=== PATIENT | female | born 1955 | race Caucasian/White ===

== ENCOUNTER 2018-02-26 22:30 | Emergency (ER) | payer MEDICARE ==
[~2018-02-26] VITALS: Ht 162.6 cm; Wt 57.2 kg
[2018-02-26] MEDS ORDERED: ONDANSETRON HCL 4 MG/2 ML VIAL IV ONE (23:45)
[2018-02-26 23:56] LABS: Basophils # (auto) 0.1 uL; Basophils % (auto) 1.4 % (0.0-2.0); Eosinophils # (auto) 0.1 uL; Eosinophils % (auto) 1.5 % (0.0-7.0); Hematocrit 38.9 % (36.0-46.0); Hemoglobin 13.3 g/dL (12.2-16.2); Lymphocytes # (auto) 2.1 uL; Lymphocytes % (auto) 29.9 % (10.0-50.0); Mean Corpuscular Hgb Conc. 34.2 g/dL (32.0-36.0); Mean Corpuscular Volume 90.5 fL (80.0-100.0); Monocytes # (auto) 0.5 uL; Monocytes % (auto) 6.6 % (0.0-12.0); Neutrophils # (auto) 4.2 uL; Neutrophils % (auto) 60.6 % (37.0-80.0); Nucleated Red Blood Cells % 0.1 %; Red Cell Distribution Width 16.3 % (11.8-14.3)
[2018-02-27 00:05] LABS: Alanine Aminotransferase 27 U/L (13-56); Albumin 4.5 g/dL (3.4-5.0); Anion Gap 18 (5-15); Aspartate Aminotransferase 40 U/L (15-37); BUN/Creatinine Ratio 20.7; Blood Urea Nitrogen 24 mg/dL (7-18); Calcium 8.5 mg/dL (8.5-10.1); Carbon Dioxide 17 mmol/L (21-32); Chloride 111 mmol/L (98-107); GFR African American 61 mL/min; GFR Non-African American 51 mL/min; Glucose 159 mg/dL (74-106); Magnesium 2.3 mg/dL (1.6-2.6); Potassium 4.1 mmol/L (3.5-5.1); Sodium 146 mmol/L (136-145)
[2018-02-27 00:11] LABS: Alkaline Phosphatase 179 U/L (45-117); Bilirubin, Total 0.7 mg/dL (0.2-1.0); Total Protein 9.5 g/dL (6.4-8.2)
[2018-02-27 00:14] LABS: Platelet Count (auto) 136 10^3/uL (140-450)
[2018-02-27] MEDS ORDERED: fentaNYL CITRATE 100 MCG/2 ML VL IV ONE (01:15)
[2018-02-27 01:25] LABS: Urine Bacteria NONE SEEN /hpf (None Seen); Urine Blood Negative /uL (Negative); Urine Specific Gravity 1.025 (1.001-1.035); Urine WBC 4 /hpf (0 - 5)
[2018-02-27] MEDS ORDERED: ONDANSETRON HCL 4 MG/2 ML VIAL ONE (01:28)
[2018-02-27] MEDS ORDERED: ONDANSETRON HCL 4 MG/2 ML VIAL IV ONE (01:45)
[2018-02-27 02:58] VITALS: BP 154/87
== END 2018-02-27 03:04 | disposition short-term general hospital (02) ==
LOC: ER 22:32
DX: S06.5X9A Traumatic subdural hemorrhage with loss of consciousness of unspecified duration, initial encounter (principal); S05.12XA Contusion of eyeball and orbital tissues, left eye, initial encounter; S05.11XA Contusion of eyeball and orbital tissues, right eye, initial encounter; R60.9 Edema, unspecified; E11.9 Type 2 diabetes mellitus without complications; Z88.2 Allergy status to sulfonamides; W01.198A Fall on same level from slipping, tripping and stumbling with subsequent striking against other object, initial encounter; Y93.89 Activity, other specified; Y99.8 Other external cause status; Y92.89 Other specified places as the place of occurrence of the external cause
CPT/HCPCS: 36415; 70450; 70480; 70486; 72125; 80053; 81001; 83735; 84484; 85025; 93005; 96374; 96375; 96376; 99285; J2405; J3010

== ENCOUNTER 2024-08-22 16:39 | Emergency (ER) | payer MEDICARE, OTHER ==
[~2024-08-22] VITALS: Ht 154.9 cm; Wt 63.0 kg
[2024-08-22 17:26] VITALS: BP 158/62; PULSE 89; RESP 16; TEMP 98; O2SAT 99
--- NOTE | 2024-08-22 17:30 | DVH ---
CLINICAL INDICATION: FALL TECHNIQUE: XY L KNEE 3V XRAY Comparison: None FINDINGS/IMPRESSION: : Suggestion Of a linear lucency in the medial tibial plateau which could reflect fracture although bon y demineralization limits evaluation consider evaluation with CT if clinically indicated. Bony demineralization. Suprapatellar knee joint effusion. Calcified atherosclerosis
--- NOTE | 2024-08-22 18:01 | ED.PDOC ---
Musculoskeletal HPI Comments A 68-YEAR-OLD FEMALE WAS BROUGHT TO ER BY EMS FOR LEFT KNEE PAIN POST FALL. PT STATES SHE WAS WALKING AND A BIG DOG KNOCKED OVER BEHIND HER. SHE FELL FORWARD AND LANDED HER LEFT KNEE ON THE GROUND. AFTER FALL, PT C/O LEFT KNEE PAIN AND SWELLING. WALKING AND STANDING INCREASES LEFT KNEE PAIN. PT DENIES HEAD INJURY, LOC, NECK PAIN, BACK PAIN AND OTHER BODY INJURY. NO OTHER SYMPTOMS REPORTED AT THIS TIME OF CARE. Chief Complaint: Fall Injury Time Seen by MD: 16:53 Primary Care Provider: LEONARDAO Reviewed Notes: Nurses Notes, Medications, Allergies Allergies: Coded Allergies: Sulfa Antibiotics (Verified Allergy, Unknown, 02/26/18) Information Source: Patient, Emergency Med Personnel Mode of Arrival: EMS Location: Left Extremity Location: Knee Timing: Hours Prehospital treatment: None Severity: Moderate Able to Move Extremity: No Bear Weight: Limited Pain: Moderate Hand Dominance: Right Mechanism: Other (FALL ) Circumstances: Fall Onset of Symptoms: After Trauma Symptoms: Swelling, Pain DVT Risk Factors: NONE Last Tetanus: UTD Associated signs and symptoms: Knee pain Past Medical History PAST MEDICAL HISTORY: DM Surgical History: Denies all surgeries OPERATIONS PROCESSOR History: No Pertinent OPERATIONS PROCESSOR History Family History Family History: Unknown Social History Smoker: Non-Smoker Alcohol: Heavy Drugs: Denies Drug Use Lives In: Home Constitutional: denies: chills, diaphoresis, fatigue, fever, malaise, sweats, weakness, others EENTM: denies: blurred vision, double vision, ear bleeding, ear discharge, ear drainage, ear pain, ear ringing, eye pain, eye redness, hearing loss, mouth pain, mouth swelling, nasal discharge, nose bleeding, nose congestion, nose pain, photophobia, tearing, throat pain, throat swelling, voice changes, others Respiratory: denies: cough, hemoptysis, orthopnea, SOB at rest, shortness of breath, SOB with excertion, stridor, wheezing, others Cardiovascular: denies: chest pain, dizzy spells, diaphoresis, Dyspnea on exertion, edema, irregular heart beat, left arm pain, lightheadedness, palpitations, PND, syncope, others Gastrointestinal: denies: abdomen distended, abdominal pain, blood streaked bowels, constipated, diarrhea, dysphagia, difficulty swallowing, hematemesis, m shirley, nausea, poor appetite, poor fluid intake, rectal bleeding, rectal pain, vomiting, others Genitourinary: denies: abnormal vagina bleeding, burning, dyspareunia, dysuria, flank pain, frequency, hematuria, incontinence, pain, , vagina discharge, urgency, others Neurological: denies: dizziness, fainting, headache, left sided numbness, left sided weakness, numbness, paresthesia, pre-existing deficit, right sided numbness, right sided weakness, seizure, speech problems, tingling, tremors, weakness, others Musculoskeletal: reports: joint pain, joint swelling Integumetry: denies: bruises, change in color, change in hair/nails, dryness, laceration, lesions, lumps, rash, wounds, others Allergic/Immunocompromised: denies: Difficulty Healing, Frequent Infections, Hives, Itching, others Hematologic/Lymphatic: denies: anemia, blood clots, easy bleeding, easy bruising, swollen glands, others Endocrine: denies: excessive hunger, excessive sweating, excessive thirst, excessive urination, flushing, intolerance to cold, intolerance to heat, unexplained weight gain, unexplained weight loss, others Psychiatric: reports: anxiety All Other Systems: Reviewed and Negative Physical Exam General Appearance: Mild Distress, Normal, Other (ANXIOUS ) HEENT: Normal ENT Inspection, PERRL/EOMI, Pharynx Normal, TMs Normal Neck: Full Range of Motion, Non-Tender, Normal, Normal Inspection Respiratory: Chest Non-Tender, Lungs Clear, No Accessory Muscle Use, No Respiratory Distress, Normal Breath Sounds Cardiovascular: No Edema, No JVD, No Murmur, No Gallop, Normal Peripheral Pulses, Regular Rate/Rhythm Breast Exam: Deferred Gastrointestinal: No Organomegaly, Non Tender, No Pulsatile Mass, Normal Bowel Sounds, Soft Genitalia: Deferred Pelvic: Deferred Rectal: Deferred Extremities: Decreased range of motion, No calf tenderness, Normal capillary refill, No pedal edema, Swelling (BONY TENDERNESS AND SWELLING ON LEFT KNEE, NO DEFORMITY. ), Tender (AND SWELLING ON LEFT KNEE, NO OPEN WOUND SND DEFORMITY. ) Musculoskeletal : Apperance: Normal Neurologic: Alert, trust administrative assistant II-XII nml as Tested, No Motor Deficits, Normal Affect, Normal Mood, No Sensory Deficits Cerebellar Function: Normal Reflexes: Normal Skin: Bruises (MILD CONTUSION ON RIGHT EYEBROW, NO BONY TENDERNESS AND DEFORMITY. ), Dry, Normal Color, Warm Peripheral Pulses: 2+ carotid (R), 2+ carotid (L), 2+ dorsalis pedis (R), 2+ dorsalis pedis (L) Lymphatic: No Adenopathy Was a procedure done? Was a procedure done?: No Differential Diagnosis EXT Differential Diagnosis: Fracture, Sprain, DJD, Contusion, Strain, Bursitis X-Ray, Labs, Meds, VS Vital Signs Date Time Temp Pulse Resp B/P (MAP) Pulse Ox O2 Delivery O2 Flow Rate FiO2 08/22/24 17:26 98.0 89 16 158/62 (94) 99 98.0 08/22/24 17:26 89 16 99 Room Air 08/22/24 16:43 98.0 89 16 158/62 (94) 99 Current Medications Medications (Trade) Dose Ordered Sig/Lois Route Start Time Stop Time Status Last Admin Acetaminophen/ Hydrocodone Bitart (Deputy 5/325MG Tab) 1 tab ONCE ONCE PO 08/22/24 18:00 08/22/24 18:01 DC 08/22/24 18:03 X-Ray, Labs, Meds, VS Comment Left knee CT shows moderate joint effusion no dislocation or acute fractures. Patient placed in knee brace crutches. Advised on rice. Script Medrol Dosepak. Advised to follow up with PCP in 2-3 days as necessary consider further imaging such as MRI if no improvement. Advised patient for son to monitor for the next 24-48 hours any change in mentation, slurred speech, numbness, weakness blurry vision nonstop vomiting return to the ER. ER return precautions given patient indicates understanding agrees with discharge plan of care. Time of 1ST Reevaluation: 19:27 Reevaluation 1ST: Improved Patient Education/Counseling: Diagnosis, Treatment, Prognosis, Need For Follow Up Family Education/Counseling: No Family Present Departure 1 Departure Time of Disposition: 19:27 Impression: Primary Impression: Effusion of knee joint, left Disposition: 01 HOME / SELF CARE / HOMELESS Condition: Stable Discharged With: Friend Critical Care Note Critical Care Time?: No Stability Stability form required: ALEXYS Chapa Aug 22, 2024 18:01 FILIPE BRIONES Aug 22, 2024 19:29
[2024-08-22] MEDS: HYDROcodone-ACET 5/325MG TAB PO ONE (18:03)
--- NOTE | 2024-08-22 18:55 | DVH ---
CT left KNEE HISTORY: R/O LEFT KNEE FX, POST FALL COMPARISON: None TECHNIQUE: Multiple axial CT images of the left knee were obtained without intra-articular contrast. Coronal and sagittal bone and soft tissue reformations were also obtained. One or more of the follow ing radiation dose reduction techniques were used for this examination: automated exposure control, a djustment of the mA and/or kV according to patient size, use of iterative reconstruction technique. FINDINGS: Bony demineralization. Alignment is maintained. No acute fracture. [id number] medial and mild lateral compartment joint space narrowing. Moderate suprapatellar knee joint effusion the tendons and ligaments are grossly intact although not optimally evaluated by CT. Marked calcified atherosclerosi s is seen. The muscle bundles about the left knee are intact. IMPRESSION: 1. Bony demineralization. No definite acute fracture. 2. Moderate knee joint effusion.
== END 2024-08-22 19:45 | disposition home or self-care (01) ==
LOC: ER 16:39 → EDBD 16:39 → ER 19:45
DX: M25.462 Effusion, left knee (principal); E11.9 Type 2 diabetes mellitus without complications; Z88.2 Allergy status to sulfonamides; W19.XXXA Unspecified fall, initial encounter
CPT/HCPCS: 29505; 73562; 73700